=== PATIENT | female | born 1965 | race Caucasian/White ===

== ENCOUNTER 2016-10-14 09:50 | Emergency (ER) | payer OTHER ==
[~2016-10-14] VITALS: Ht 167.6 cm; Wt 83.9 kg
[~2016-10-14 09:50] MED LIST: ASPRIN OR; LEXAPRO10 MG PO; SYNTHROID0.125 M1 PO; SYNTHROID0.15 MG PO; WELLBUTRIN XL150 MG PO; [UNRECOGNIZED DRUG - OTHER] PO
[2016-10-14] MEDS ORDERED: LEVOTHYROXINE0.2 M2 PO (10:15)
[2016-10-14] MEDS ORDERED: PRAVACHOL40 MG PO (10:16)
[2016-10-14] MEDS ORDERED: ZOLOFT 50MG TAB50 MG PO (10:16)
[2016-10-14] MEDS ORDERED: ESTROVEN ENERG1 EACH PO (10:17)
--- NOTE | 2016-10-14 10:45 | Urgent Treatment Center Report ---
See Addendum History of Present Issue Date/Time Seen by Provider 10/14/16 1027 Visit Reason Pt arrived:Walked Presenting Problem:c/o burning, pressure with urination, lower back/suprapubic pain. Location if Accident: Onset of symptoms date/time:/ or onset unknown for:MEDICAL HX UNKNOWN Have you (or family members/close friends) recently traveled outside the [place]? N If Yes, where/when: Have you had exposure to infectious disease within the past month? TB? Other? Specify: c/o dysuria starting Saturday, 4 days ago. Urinary frequency. bloody urine this morning w/ mild low back pain. Denies nausea, vomiting, fever. Mild chills this morning. Hasn't taken or tried anything for symptoms. Source patient Exam Limitations no limitations ALLERGIES Coded Allergies: penicillin G (11/14/15) Home Medications Reported Medications [ASPRIN] 1 TAB OR DAILY Levothyroxine Sodium 0.2 MG PO DAILY #30 Pravastatin Sodium (Pravachol) 40 MG PO QHS #30 Sertraline Hcl (Zoloft 50MG) 25 MG PO DAILY Soy Isofl/Blk Coh/Gr Tea/[place]erba ([employer] Caplet) 1 EACH PO DAILY History Medical History General Angina: No CT: No Hypertension? No Hyperlipidemia? Yes CHF? No COPD? Yes Asthma? Yes Hernia? No Thyroid Problems? Yes CVA? No Seizures? No Diabetes? No UTI? Yes Stones? No GB Disease: Yes Hepatitis? No Cataracts? No Glaucoma? No MRSA? No TB? No Depression? Yes Cancer? 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 denies: discharge, . Physical Exam Vital Signs Vital Signs Date Time Temp Pulse Resp B/P Pulse O2 O2 Flow FiO2 Ox Delivery Rate 10/14 1011 99.0 86 16 128/80 99 General Appearance normal appearance Respiratory Status No: respiratory distress. Lung Sounds anterior: normal breath sounds. posterior: normal breath sounds. bilateral: normal breath sounds. Cardiovascular regular rate/rhythm, no murmur Gastrointestinal normal bowel sounds, non tender, soft Back no CVA tenderness Neurologic alert Skin warm/dry Medical Decision Making LABS/Meds/Orders Pt receiving controlled substance in ED? No Results/Orders Laboratory Tests 10/14/16 1027: Urine Color YELLOW, Urine Appearance TURBID, Urine pH 5.5, Ur Specific [place] 1.010, Urine Protein 30, Urine Ketones NEG, Urine Blood LARGE, Urine Nitrate NEG , Urine Bilirubin NEG, Urine Urobilinogen 0.2, Ur Leukocyte Esterase MODERATE, Urine Glucose NEG Orders Procedure Date/time Status [facility] URINE DIPSTICK 10/14 1027 Complete Departure Departure Time of Disposition 1110 Disposition DC Home or Self Care(routine) Clinical Impression Primary Impression: UTI (urinary tract infection) Qualifiers: Urinary tract infection type: acute cystitis Hematuria presence: with hematuria Qualified Code: N30.01 - Acute cystitis with hematuria Secondary Impressions: Hematuria Condition STABLE Referrals Brianna Graff APRN (Family) Immediately for new or worsening symptoms. If no noticeable improvement in 48 hours and for final culture results. In 10-14 days for repeat U/A to ensure hematuria resolved. Patient Instructions DI for Hematuria, DI for Urinary Tract Infection (UTI) Additional Instructions Seek treatment immediate for abdominal pain, Nausea, vomiting, fever, decrease urination or any other new or worsening symptoms. Increase fluids. Not caffeine as it does not help to clear your kidneys. Pyridium will cause orange urine. Do not be alarmed. This urine will stain. If you feel this medication is necessary for pain > 48 hours, see primary care provider as your antibiotic may need adjusted. Start antibiotic immediately and be sure to complete it. Discharge Counseling Counseled pt/family regarding diagnosis, test results, medications/RX, home care, follow up needs Prescriptions Current Visit Scripts Ciprofloxacin HCl (Cipro 500MG TAB) 500 MG PO BID #14 TAB Phenazopyridine HCl (Pyridium) 200 MG PO TIDP PRN painful urination #6 TAB at 1116
[2016-10-14 10:47] LABS: URINE BILIRUBIN - DIPSTICK NEG (NEG); URINE BLOOD LARGE (NEG)
[2016-10-14] MEDS ORDERED: CIPRO 500MG TA500 MG PO (11:16)
[2016-10-14] MEDS ORDERED: PYRIDIUM200 M2 PO (11:16)
[2016-10-14 11:34] VITALS: BP 127/69
== END 2016-10-14 11:35 | disposition home or self-care (01) ==
LOC: UTC 09:50
PROVIDERS: Nurse Practitioner Family
DX: N30.01 Acute cystitis with hematuria (principal); Z72.0 Tobacco use; J44.9 Chronic obstructive pulmonary disease, unspecified

== ENCOUNTER → 2017-05-27 | Outpatient (CLI) | payer OTHER ==
[~2017-05-27] MED LIST changes: +CIPRO 500MG TA500 MG PO; +ESTROVEN ENERG1 EACH PO; +LEVOTHYROXINE0.2 M2 PO; +PRAVACHOL40 MG PO; +PYRIDIUM200 M2 PO; +ZOLOFT 50MG TAB50 MG PO
--- NOTE | 2017-05-29 12:01 | RADIOLOGY REPORT PS360 ---
DIG MAMM-SCREEN [facility] W/CAD CAD Screening COMPARISON: Digital mammograms 10/26/2015 and 6 month post ultrasound-guided biopsy follow-up mammogram left breast 05/17/2016 INDICATION: There is a history of breast cancer patient maternal grandmother diagnosed after menopause. The patient had ultrasound-guided biopsy left breast 11/14/2015 with pathologic findings consistent with fibrocystic change TECHNIQUE: Standard CC and MLO images were obtained. R2 CAD reviewed. FINDINGS: Moderate diffuse fibroglandular densities are seen in both breasts and the findings are fairly symmetrical and bilateral. A biopsy clip is seen upper outer quadrant left breast. There is no new or suspicious lesion in either breast and there are no suspicious microcalcifications. There are few scattered benign-appearing calcifications in each breast. IMPRESSION: Fibrofatty parenchyma with no suspicious lesion seen recommend yearly follow-up BI-RADS CATEGORY: 2_Benign RECOMMENDED FOLLOWUP: 12M 12 MONTH FOLLOW-UP (A letter has been sent to the patient regarding results of the study.)
== END ==
LOC: RAD 08:24
DX: Z12.31 Encounter for screening mammogram for malignant neoplasm of breast (principal)
CPT/HCPCS: G0202